=== PATIENT | male | born 1985 | race Hispanic/Latino ===

== ENCOUNTER 2017-09-11 09:26 | Outpatient (CLI) | payer OTHER ==
--- NOTE | 2017-09-11 11:17 | XRay Report ---
Bilateral hips: Bilateral hip pain. AP and frog lateral views of both hips demonstrate normal hip alignment with good preservation of the joint spaces and articular surfaces. The bones are well-mineralized. AP view the pelvis demonstrates well-preserved SI joints. Impression no Normal exam.
== END 2017-09-11 09:27 | disposition home or self-care (01) ==
LOC: EDBD → SPVIMAG 09:26
PROVIDERS: ATTEND Orthopaedic Surgery
DX: M25.552 Pain in left hip (principal); M25.551 Pain in right hip
CPT/HCPCS: 73521

== ENCOUNTER 2017-10-28 10:00 | Outpatient (CLI) | payer OTHER ==
--- NOTE | 2017-10-28 10:50 | XRay Report ---
LEFT HAND: Pain. The bony architecture is intact. Bony alignment is normal. No soft tissue abnormalities are seen. The joint spaces appear preserved. IMPRESSION: Normal left hand.
== END 2017-10-28 10:01 | disposition home or self-care (01) ==
LOC: SPVIMAG 10:00
PROVIDERS: ATTEND Orthopaedic Surgery
DX: M79.642 Pain in left hand (principal)